=== PATIENT | female | born 1985 | race African-American/Black ===

== ENCOUNTER 2017-12-19 10:45 | Emergency (ER) | payer OTHER ==
[~2017-12-19] VITALS: Ht 162.6 cm; Wt 59.0 kg
[~2017-12-19 10:45] MED LIST: BACTRIM DS TAB1 EACH PO; IBUPROFEN 200200 M1 PO; NOHOMEMEDICATIONS; NORCO 5-325 TA1 EACH PO; NORFLEX100 MG PO; PRENATAL; PYRIDIUM200 MG PO; TAMSULOSIN HCL0.4 MG PO; TRAMADOL 50 MG50 MG PO; TRINATE TABLET1 TAB PO; ZOFRAN ODT4 MG PO
[2017-12-19 11:10] LABS: URINE BILIRUBIN NEGATIVE (Negative); URINE BLOOD 3+ (Negative); URINE CLARITY CLOUDY; URINE COLOR YELLOW; URINE GLUCOSE-RANDOM* NEGATIVE (Negative); URINE KETONES NEGATIVE (Negative); URINE LEUKOCYTES-REFLEX NEGATIVE (Negative); URINE NITRITE-REFLEX NEGATIVE (Negative); URINE PROTEIN (DIPSTICK) NEGATIVE (Negative); URINE SPECIFIC GRAVITY 1.015 (1.005-1.035); URINE UROBILINOGEN 0.2 E.U./dl (0.2-1.0)
[2017-12-19 11:21] LABS: CASTS None Seen /LPF (None Seen); MUCUS >6 Heavy strn/LPF (None Seen); SQUAMOUS >10 Many /LPF (0-3)
[2017-12-19 11:22] LABS: BACTERIA-REFLEX 1-9 Few /HPF (None Seen); CRYSTALS None Seen /LPF (None Seen); URINE RBC >20 Many /HPF (0-2); URINE WBC-REFLEX 0-5 Rare /HPF (0-5)
[2017-12-19 11:56] LABS: BASOPHILS 0.4 % (0.0-2.0); EOSINOPHILS 0.4 % (0.0-3.0); HEMOGLOBIN 13.8 gm/dL (12.0-15.0); LYMPHOCYTES 18.6 % (24.0-44.0); MCH 28.2 pg (26.0-34.0); MCHC 33.7 g/dL (28.0-37.0); MCV 83.6 fL (80.0-100.0); MONOCYTES 5.6 % (1.0-8.0); PLATELET COUNT 206 thou/uL (150-400); RDW 14.1 % (10.5-14.5)
[2017-12-19 12:11] LABS: CREATININE 0.8 mg/dL (0.6-1.0); POTASSIUM 3.4 mmol/L (3.5-5.1)
[2017-12-19] MEDS ORDERED: HYDROCODONE-AP1 EAC6 PO (12:40)
[2017-12-19] MEDS ORDERED: FLOMAX0.4 MG PO (12:40)
[2017-12-19] MEDS ORDERED: PHENERGAN 25 MG25 M1 PO (12:40)
[2017-12-19 13:30] VITALS: BP 102/63
== END 2017-12-19 13:28 | disposition home or self-care (01) ==
LOC: ER 10:45
PROVIDERS: Physician Assistant
DX: N20.0 Calculus of kidney (principal)

== ENCOUNTER 2018-12-26 19:07 | Emergency (ER) | payer OTHER ==
[~2018-12-26] VITALS: Ht 167.6 cm; Wt 65.8 kg
[~2018-12-26 19:07] MED LIST changes: +FLOMAX0.4 MG PO; +HYDROCODONE-AP1 EAC6 PO; +PHENERGAN 25 MG25 M1 PO
[2018-12-26] MEDS ORDERED: MOBIC7.5 MG PO (21:40)
[2018-12-26] MEDS ORDERED: NORFLEX100 MG PO (21:40)
[2018-12-26 21:52] VITALS: BP 114/72
== END 2018-12-26 21:53 | disposition home or self-care (01) ==
LOC: ER 19:07
DX: S39.012A Strain of muscle, fascia and tendon of lower back, initial encounter (principal); M54.2 Cervicalgia; M25.511 Pain in right shoulder; R10.32 Left lower quadrant pain; V89.0XXA Person injured in unspecified motor-vehicle accident, nontraffic, initial encounter; Y93.I9 Activity, other involving external motion; Y92.410 Unspecified street and highway as the place of occurrence of the external cause; Y99.8 Other external cause status

== ENCOUNTER 2019-11-10 21:35 | Emergency (ER) | payer OTHER ==
[~2019-11-10] VITALS: Ht 167.6 cm; Wt 64.0 kg
[~2019-11-10 21:35] MED LIST changes: +MOBIC7.5 MG PO
[2019-11-10] MEDS ORDERED: IBUPROFEN 400400 M2 PO (23:12)
[2019-11-10] MEDS ORDERED: FLEXERIL PO (23:12)
[2019-11-11 00:52] VITALS: BP 132/76
== END 2019-11-11 00:53 | disposition home or self-care (01) ==
LOC: ER 21:35
DX: S13.4XXA Sprain of ligaments of cervical spine, initial encounter (principal); V49.3XXA Car occupant (driver) (passenger) injured in unspecified nontraffic accident, initial encounter; Y93.89 Activity, other specified; Y92.89 Other specified places as the place of occurrence of the external cause; Y99.8 Other external cause status